=== PATIENT | female | born 1975 | race Caucasian/White ===

== ENCOUNTER 2021-11-28 01:03 | Inpatient (IN) | payer MEDICARE ==
[2021-11-28 01:22] LABS: #Basophils 0.1 thou/uL (0.0-0.2); #Eosinphils 0.2 thou/uL (0.0-0.7); #Lymphocytes 2.3 thou/uL (1.20-3.40); #Monocytes 0.6 thou/uL (0.11-0.59); #Neutrophils 3.9 thou/uL (1.40-6.50); %Lymphocytes 33.1 % (21.0-51.0); %Neutrophils 54.8 % (42.0-75.0); Hemoglobin 13.4 g/dL (12.0-16.0); Mean Corpuscular HGB CONC 33.2 g/dL (32.0-36.0); Mean Corpuscular Hemoglobin 28.3 pg (27.0-31.0); Mean Corpuscular Volume 85.3 fL (78.0-98.0); Mean Platelet Volume 8.5 fL (7.4-10.4); Platelet Count 226 thou/uL (130-400); Red Blood Cell (RBC) Count 4.75 mill/uL (4.20-5.40); White Blood Cell (WBC) Count 7.1 thou/uL (4.8-10.8)
[2021-11-28] MEDS ORDERED: Nitroglycerin 2% Ointment 1 INCH/1 GM Packet ONE (02:04)
[2021-11-28] MEDS ORDERED: Aspirin 325 MG TAB ONE (02:04)
[2021-11-28 02:15] LABS: CKMB 3.3 ng/mL (0-6.6)
[2021-11-28 02:51] LABS: ALT (SGPT) 10 U/L (8-55); AST (SGOT) 12 U/L (5-34); Albumin 4.1 g/dL (3.5-5.0); Alkaline Phosphatase 68 U/L (40-110); Anion Gap 12 mmol/L (10-20); BUN (Urea Nitrogen) 11 mg/dL (7.0-18.7); Bilirubin, Total 0.5 mg/dL (0.2-1.2); Calc. Creatinine Clearance 0 mL/min (70-130); Calcium 9.2 mg/dL (7.8-10.44); Carbon Dioxide 24 mmol/L (22-29); Chloride 106 mmol/L (98-107); Estimated GFR 97; Globulin 2.9 g/dL (2.4-3.5); Glucose 89 mg/dL (70-105); Lipase 21 U/L (8-78); Potassium 3.8 mmol/L (3.5-5.1); Sodium 138 mmol/L (136-145)
[2021-11-28] MEDS ORDERED: Enoxaparin Sodium 100 MG/ML SYRINGE ONE (03:10)
[2021-11-28] MEDS ORDERED: Nitroglycerin 0.4 MG TAB (25 Tab Bottle) SL PRN (03:45)
[2021-11-28 04:56] VITALS: BMI 38.0
[2021-11-28 05:11] LABS: Critical Call Chem Troponin I RESULT DECREASING; Troponin I 1.837 ng/mL (< 0.028)
[2021-11-28 07:40] LABS: Troponin I 1.942 ng/mL (< 0.028)
[2021-11-28] MEDS ORDERED: Iopamidol 370 76% 100 ML VIAL ONE (08:00)
[2021-11-28] MEDS: Acetaminophen 325 MG TAB PO PRN ×2 (08:23→21:24)
[2021-11-28] MEDS: Aspirin Chewable 81 MG TAB PO SCH (08:23)
[2021-11-28] MEDS ORDERED: Lisinopril 2.5 MG TAB PO SCH (09:00)
[2021-11-28] MEDS ORDERED: Metoprolol Tartrate 25 MG TAB PO SCH (09:00)
[2021-11-28] MEDS ORDERED: Communication Order-Pharmacy FS SCH (09:15)
[2021-11-28] MEDS ORDERED: Enoxaparin Sodium 100 MG/ML SYRINGE SC SCH ×2 (12:00→21:00)
[2021-11-28] MEDS ORDERED: Lidocaine 1% (PF) 30 ML VIAL ONE (13:53)
[2021-11-28] MEDS ORDERED: Midazolam HCl 2 mg/2 ml Vial ONE (14:35)
[2021-11-28] MEDS ORDERED: Fentanyl 100 MCG/2 ML VIAL ONE (14:46)
[2021-11-28] MEDS ORDERED: Morphine 4 MG/ML VIAL ONE (15:08)
[2021-11-28] MEDS ORDERED: Lorazepam 1 MG TAB PO PRN (19:10)
[2021-11-28] MEDS ORDERED: Atorvastatin Calcium 40 MG TAB PO SCH (21:00)
[2021-11-29] MEDS: Acetaminophen 325 MG TAB PO PRN ×2 (06:11→11:00)
[2021-11-29] MEDS: Aspirin Chewable 81 MG TAB PO SCH (10:28)
[2021-11-29 11:52] VITALS: BP 130/76; TEMP 98.3
== END 2021-11-29 15:20 | disposition home or self-care (01) | DRG 282 ==
LOC: EDBD 01:03 → ERS 01:03 → 2NO 03:16
PROVIDERS: ADMIT Internal Medicine; ATTEND Internal Medicine
PROC: 4A023N7 Measurement of Cardiac Sampling and Pressure, Left Heart, Percutaneous Approach (ICD-10-PCS; principal; 2021-11-28)
PROC: B2111ZZ Fluoroscopy of Multiple Coronary Arteries using Low Osmolar Contrast (ICD-10-PCS; 2021-11-28)
DX: I21.4 Non-ST elevation (NSTEMI) myocardial infarction (principal); Z20.822 Contact with and (suspected) exposure to COVID-19; E78.5 Hyperlipidemia, unspecified; I10 Essential (primary) hypertension; F32.A Depression, unspecified; E66.9 Obesity, unspecified; F43.10 Post-traumatic stress disorder, unspecified; F41.0 Panic disorder [episodic paroxysmal anxiety]; K44.9 Diaphragmatic hernia without obstruction or gangrene; Z98.84 Bariatric surgery status; Z82.49 Family history of ischemic heart disease and other diseases of the circulatory system; Z68.38 Body mass index [BMI] 38.0-38.9, adult; Z90.49 Acquired absence of other specified parts of digestive tract; Z90.710 Acquired absence of both cervix and uterus; Z79.82 Long term (current) use of aspirin; Z79.899 Other long term (current) drug therapy
CPT/HCPCS: 36415; 36416; 71045; 80053; 82553; 83690; 84484; 85025; 93005; 93306; 93458; 94760; 96372; 99152; 99153; C1769; J1650; J2001; J2250; J2270; J3010; Q9967; U0003; U0005

== ENCOUNTER 2021-12-13 08:50 | Outpatient (CLI) | payer MEDICARE | END 2021-12-13 08:51 | disposition home or self-care (01) | LOC: BICRAD 08:50 | PROVIDERS: ATTEND Family Medicine | DX: M54.2 Cervicalgia (principal); M47.812 Spondylosis without myelopathy or radiculopathy, cervical region | CPT/HCPCS: 72050 ==